=== PATIENT | male | born 1985 ===

== ENCOUNTER 2018-05-30 23:47 | Emergency (ER) | payer OTHER ==
[~2018-05-30] VITALS: Ht 175.3 cm; Wt 62.6 kg
[~2018-05-30 23:47] MED LIST: DOLOGESIC CAPSU1 CAP PO
[2018-05-31] MEDS ORDERED: KETO10TA2 PO (03:31)
[2018-05-31] MEDS ORDERED: DUI500 PO (03:31)
== END 2018-05-31 04:46 | disposition home or self-care (01) ==
LOC: ER 23:47
DX: S61.214A Laceration without foreign body of right ring finger without damage to nail, initial encounter (principal); W45.8XXA Other foreign body or object entering through skin, initial encounter; Y93.89 Activity, other specified; Y92.69 Other specified industrial and construction area as the place of occurrence of the external cause; Y99.8 Other external cause status